=== PATIENT | male | born 1985 | race Caucasian/White ===

== ENCOUNTER 2016-11-30 07:39 | Emergency (ER) | payer MEDICAID ==
[~2016-11-30] VITALS: Ht 182.9 cm; Wt 88.5 kg
[~2016-11-30 07:39] MED LIST: ACETAMINOPHEN325 M1 PO; AMOXIL500 M1 PO; AMOXIL500 MG PO; AUGMENTIN1 TA2 PO; BACTRIM DS 8001 TA1 PO; DARVOCET-N6 EACH/PAK PO; DICLOFENAC 50MG50 MG PO; FLAGYL 250MG.250 MG PO; HYDROCODONE-APA1 TA1 PO; KEFLEX 500MG.500 MG PO; KEFLEX500 M1 PO; LORTAB 5/500 501 TAB PO; NOMEDS; PEN-VK500 MG PO; PENICILLIN-VK500 MG PO; SUBOXONE 8 MG-21 FIL SL; TRAMADOL50 M1 PO; ULTRAM50 MG PO; VICODIN 5/500 T1 TAB PO; XARELTO15 MG PO
--- NOTE | 2016-11-30 08:10 | Emergency Room Report ---
History of Present Illness Time Seen by MD Akisn Presenting Problem in Triage Pt arrived:Walked Presenting Problem:RIGHT ANKLE INJURY, STATES SHOT SUBOXONE IN THE ANKLE Onset of symptoms date/time:11/27/16 or onset unknown for: Treatment Prior to Arrival: CH[employer]NAG[employer] Provided by: Sepsis Risk Assessment: Temp: 97.7 B/P: 140/75 MAP: 96 Pulse: 98 Resp: 20 Recent fever? N Clinical Suspician of Infection? N Mental Status: 1 - Regular (Normal Baseline) Sepsis Risk:Possible Sepsis Risk Have you (or family members/close friends) recently traveled outside the [place]? N If Yes, where/when: Have you had exposure to infectious disease within the past month? TB? Other? Specify: Comment The patient states that on Tuesday 3 days ago he injected Suboxone into the medial aspect of his LEFT ankle. He thinks he hit the artery, because he now has a large blister for infection on the medial aspect of his foot. He has some pain , but denies fever or chills. He only has pain with touch or weightbearing, not at rest. Last tetanus immunization year ago. He says he has a history of oral opioid abuse and was on prescription Suboxone because of that. He denies any history of intravenous heroin use. ALLERGIES Coded Allergies: propoxyphene (From [employer]) (Mild, NA-NAUSEA/VOMITING 11/30/16) Home Medications Active Scripts Cephalexin (Keflex 500MG) 500 MG PO QID 7 Days Prov: 08/22/15 TRAMADOL HCL (Tramadol) 50 MG PO Q6 PRN pain #10 TAB Prov: 08/22/15 Reported Medications BUPRENORPHINE HCL/NALOXONE HCL (Suboxone 8 MG-2 MG Sl Film) 1 NANDO SL DAILY Acetaminophen 650 MG PO Q6HP PRN PAIN/FEVER History Medical History General CAD? No Angina: No PA: No Hypertension? No Hyperlipidemia? No CHF? No DVT? Yes PE? No COPD? No Asthma? No Anemia? No GERD? No Gastric ulcers? No GI Bleed? No Hernia? No Thyroid Problems? No Hypothyroidism? No CVA? No Seizures? No Diabetes? No Insulin Dependent: No Insulin Pump: No Home FSBS? No Renal Insuffiency? No End Stage Renal Disease? No UTI? No Stones? No BPH? No GB Disease: No Nephritic Syndrome? No Asplenia? No Hepatitis? Yes (hepatitis C) Sickle Cell Disease? No Arthritis? No Migraines? No Cataracts? No Glaucoma? No MRSA? No HIV? No TB? No Anxiety? No Depression? No Cancer? No Immunization Hx DT/Tetanus 10/30/14 Surgical Hx Previous Surgery?Y RT HAND Social History Smoking Hx Smoker: Current Every Day Smoker Tobacco: Yes Type Cigarettes Packs/day < 1 Pack Alcohol Alcohol: Yes Review of Systems All Other Systems Reviewed and Negative Constitutional denies fever Skin see HPI Physical Exam Vital Signs Vital Signs Date Time Temp Pulse Resp B/P Pulse O2 O2 Flow FiO2 Ox Delivery Rate 11/30 1115 97.7 85 20 119/87 100 11/30 1048 85 20 119/87 100 11/30 0743 97.7 98 20 140/75 100 General Appearance normal appearance Respiratory Status No: respiratory distress. Cardiovascular regular rate/rhythm, normal peripheral pulses Extremities RIGHT foot shows a large purulent vesicle approximately 15 cm length by 7 cm with medially. Fluctuance which feel superficial. Minimal surrounding erythema. Normal pedal pulses, capillary refill, sensation, and warmth. Neurologic alert, no motor/sensory deficits Medical Decision Making LABS/Meds/Orders Pt receiving controlled substance in ED? No Results/Orders Laboratory Tests 11/30/16 0920: Sodium 136, Potassium 3.8, Chloride 98, Carbon Dioxide 30, BUN 7, Creatinine 0.8 , Estimated Creat Clear 170, Estimated GFR (MDRD) 114, Glucose 110 H, Calcium 9.5, Total Bilirubin 0.5, AST 79 H, ALT 95 H, Alkaline Phosphatase 129 H, Total Protein 8.8 H, Albumin 4.1, Globulin 4.7 H, Albumin/Globulin Ratio 0.9 L, WBC 7.0, RBC 5.00, Hgb 15.5, Hct 44.2, MCV 88.3, RDW 13.1, Plt Count 296, MPV 6.3 L, Gran % 64.9, Gran # 4.6, Lymphocytes % 27.2, Monocytes % 6.7, Eosinophils % 0.7, Basophils % 0.5, Lymphocytes # 1.9, Monocytes # 0.5, Eosinophils # 0.1, Basophils # 0.0, PUBS MCHC 35.4, MCH 31.3 H Current Medication Orders Sig/[place] Start time Last Medication Dose Route Stop Time Status Admin Clindamycin Phosphate 0 .STK-MED ONE 11/30 1045 DC IV Lidocaine/Epinephrine 0 .STK-MED ONE 11/30 0849 DC .ROUTE Clindamycin Phosphate 900 MG ONCE ONE 11/30 829 DC 11/30 Sodium Chloride 100 ML IV 11/30 928 1049 Lidocaine/Epinephrine 10 ML ONCE ONE 11/30 829 DC SC 11/30 08 Sodium Chloride 10 ML PRN PRN 11/30 829 DCD IV 12/01 820 Orders Procedure Date/time Status STABILIZE JOINT 11/30 934 Active GEN NSG/PT REQ (NOT FOR MEDS!) 11/30 934 Active CULTURE, WOUND 11/30 851 Active IV SALINE LOCK 11/30 820 Active CULTURE, BLOOD 11/30 820 Active LACTIC ACID 11/30 820 Active CBC WITH AUTO DIFF 11/30 820 Complete CHEM 12 PROFILE 11/30 820 Complete XRAY/CT/US XRAY/CT/US XRAY foot Comment Interpreted by Ravi Gerardo MD. Negative for fracture, dislocation, or foreign body. No signs of osteomyelitis. No air in soft tissues. Progress - 8:25 AM: Discussed with Dr. Correa. He will follow-up in his office in 2 days. He suggests inserting an Angiocath into the vesicle before it is opened and then using the Angiocath to irrigate it after it is incised. Procedures Incision and Drainage Progress Incision/Drainage Performed by: RAVI GERARDO Consent: Verbal consent obtained. Risks and benefits: risks, benefits and alternatives were discussed Consent given by: patient Patient identity confirmed: verbally with patient Type: abscess Location: RIGHT foot Anesthesia: local infiltration Local anesthetic: lidocaine 1% with epinephrine Patient sedated: no Scalpel size: 11 Incision type: single straight Complexity: simple Drainage: Clear fluid Drainage amount: Small amount Wound treatment: probed for loculationsl. wound left open Packing: No Culture: Yes Patient tolerance: Patient tolerated the procedure well with no immediate complications Incisions made in 2 separate areas, although the superficial skin appeared loose as if it was a superficial vesicle, there is no fluid beneath it. Unable to drain anything significant. Probed with hemostats, no pus pockets found. Unable to irrigate with Angiocath as there is no vesicle present. Departure Departure Disposition DC Home or Self Care(routine) Clinical Impression Primary Impression: Cellulitis of foot Condition STABLE Referrals Cricket Correa MD See on for follow-up. Call today to make that appointment. Patient Instructions DI for Cellulitis -- Adult Additional Instructions Off work 11/30/16 through 12/02/16. Use crutches, do not bear weight on RIGHT foot. Additional instructions for EXTREMITY PAIN: See your physician as soon as possible for further evaluation. Return to an emergency department immediately if you have uncontrollable pain, loss of feeling or inability to move your injured extremity, or fever greater than 101 degrees. Prescriptions Current Visit Scripts Clindamycin Hcl (Clindamycin 300MG) 300 MG PO QID #40 CAP Ibuprofen (Ibuprofen 800MG) 800 MG PO Q8HP PRN pain #15 TAB ED Critical Care Critical Care No at 3134
[2016-11-30 10:17] LABS: LYMPH # 1.9 K/mm3 (0.7-4.5); LYMPH % 27.2 % (10-50)
[2016-11-30 10:36] LABS: HEMOGLOBIN 15.5 g/dL (14.1-18.0)
[2016-11-30] MEDS ORDERED: IBUPROFEN800 MG PO (10:54)
[2016-11-30] MEDS ORDERED: CLINDAMYCIN HC300 MG PO (10:54)
[2016-11-30 11:15] VITALS: BP 119/87
--- NOTE | 2016-11-30 12:51 | RADIOLOGY REPORT PS360 ---
FOOT-RT-3 VIEWS HISTORY: Infection medial aspect of the right foot infection ORDERING PHYSICIAN: Ravi Gerardo MD PATIENT AGE: 31 years COMPARISON: None FINDINGS: No fracture or dislocation. No lytic or blastic change. There is normal mineralization.. The joint spaces are well-preserved. No significant degenerative/arthritic changes. No erosive changes evident. IMPRESSION: Negative, no acute finding
== END 2016-11-30 11:15 | disposition home or self-care (01) ==
LOC: ER 07:39
PROVIDERS: Emergency Medicine
PROC: 0H9MXZZ Drainage of Right Foot Skin, External Approach (ICD-10-PCS; principal; 2016-11-30)
DX: L03.115 Cellulitis of right lower limb (principal)

== ENCOUNTER → 2017-07-25 | Outpatient (CLI) | payer MEDICAID ==
[~2017-07-25] MED LIST changes: +CLINDAMYCIN HC300 MG PO; +IBUPROFEN800 MG PO
[2017-07-25 20:27] LABS: AMPHETAMINES/METAMPHETAMINES NEGATIVE ng/mL (<1000)
== END ==
LOC: LAB 19:09
PROVIDERS: Physician Assistant
DX: Z79.899 Other long term (current) drug therapy (principal)